=== PATIENT | male | born 1980 | race Caucasian/White ===

== ENCOUNTER 2019-09-19 07:00 | Outpatient (CLI) | payer BC, MEDICARE ==
[2019-09-19 17:03] LABS: CALCIUM 8.9 mg/dL (8.5-10.3); CREATININE 0.9 mg/dL (0.6-1.2)
== END 2019-09-19 23:59 | disposition home or self-care (01) ==
LOC: LAB.WCP 07:00
PROVIDERS: ATTEND Nurse Practitioner Family
DX: R03.0 Elevated blood-pressure reading, without diagnosis of hypertension (principal)
CPT/HCPCS: 36415; 80048

== ENCOUNTER 2019-10-21 14:39 | Outpatient (CLI) | payer BC ==
--- NOTE | 2019-10-23 04:44 | Ultrasound Report ---
Reason: INGUINAL HERNIA Procedure Date: 10/21/2019 Accession Number: [id number] / [id number] Procedure: US - Pelvic Limited or F/U CPT Code: Final Report FULL RESULT: EXAM: Limited pelvic ultrasound EXAM DATE: 10/21/2019 04:39 PM. CLINICAL HISTORY: INGUINAL HERNIA. COMPARISON: ABD/PEL 12/28/2008 10:32 AM. TECHNIQUE: Real-time scanning was performed of the inguinal regions with static images and cine obtained. FINDINGS: Right: In the right groin adjacent to the femoral vessels is a cystic lesion measuring 4.3 x 1.4 x 1.8 cm extending through the femoral canal. It increases in size on Valsalva maneuvers. Bowel loops are also seen extending through the femoral canal with Valsalva maneuvers. These bowel loops are reducible. No inguinal hernia is seen on Valsalva maneuvers. Subcentimeter normal-appearing right inguinal lymph nodes are incidentally seen. Left: No left inguinal or femoral hernias are seen. IMPRESSION: Fluid and bowel-containing reducible right femoral hernia. RADIA
== END 2019-10-21 14:40 | disposition home or self-care (01) ==
LOC: DI 14:39
PROVIDERS: ATTEND Nurse Practitioner Family
DX: K40.90 Unilateral inguinal hernia, without obstruction or gangrene, not specified as recurrent (principal); K41.90 Unilateral femoral hernia, without obstruction or gangrene, not specified as recurrent
CPT/HCPCS: 76857

== ENCOUNTER 2019-11-27 08:50 | Day surgery (SDC) | payer OTHER, BC ==
[~2019-11-27 08:50] MED LIST: CEFAZOLIN SODIUM IN 0.9 % NACL 2 GM/100 ML BAG IV ONE
[2019-11-27] MEDS ORDERED: PROPOFOL 200 MG/20 ML VIAL IVP ONE (08:51)
[2019-11-27] MEDS ORDERED: KETOROLAC 30 MG/ML VIAL IVP ONE (08:51)
[2019-11-27] MEDS ORDERED: GLYCOPYRROLATE 1 MG/5 ML VIAL IVP ONE (08:51)
[2019-11-27] MEDS ORDERED: dexAMETHasone 4 MG TABLET PO ONE (08:51)
[2019-11-27] MEDS ORDERED: ACETAMINOPHEN 1,000 MG/100 ML 100 ML IV ONE (08:51)
[2019-11-27] MEDS ORDERED: fentaNYL 100 MCG/2 ML VIAL IVP ONE (08:51)
[2019-11-27] MEDS ORDERED: ONDANSETRON 4 MG/2 ML VIAL IVP ONE (08:51)
[2019-11-27] MEDS ORDERED: LIDOCAINE-MPF 2% 5 ML VIAL IM ONE (08:51)
[2019-11-27] MEDS ORDERED: SEVOFLURANE 250 ML LIQUID INH ONE (08:51)
[2019-11-27] MEDS ORDERED: MIDAZOLAM 2 MG/2 ML VIAL IVP ONE (08:51)
[2019-11-27] MEDS ORDERED: LACTATED RINGERS 1,000 ML IV ONE (09:00)
--- NOTE | 2019-11-27 10:14 | ANESTHESIA ---
Pre-Anesthesia VS, & Labs - Diagnosis Bilateral inguinal hernias - Procedure bilateral inguinal hernia repair Vital Signs: Temp Pulse Resp BP Pulse Ox 36.1 C L 58 L 16 148/98 H 100 11/27/19 09:00 11/27/19 09:00 11/27/19 09:00 11/27/19 09:00 11/27/19 09:00 Height 5 ft 8 in Weight (kg) 98.9 kg - NPO >8 hours Home Medications and Allergies Home Medications: Ambulatory Orders Lisinopril [Zestril] 5 mg PO DAILY 11/02/19 Multivitamin [Multiple Vitamins] 1 each PO DAILY 11/02/19 Lisinopril [Zestril] 5 mg PO DAILY 11/02/19 Multivitamin [Multiple Vitamins] 1 each PO DAILY 11/02/19 Allergies/Adverse Reactions: Allergies Allergy/AdvReac Type Severity Reaction Status Date / Time No Known Drug Allergies Allergy Verified 11/02/19 14:55 Anes History & Medical History - Anesthetic History Anesthesia Complications: reports: Post-Operative Nausea/Vomiting - Medical History Cardiovascular: reports: Hypertension Pulmonary: reports: None Gastrointestinal: reports: None Urinary: reports: None Neuro: reports: None Musculoskeletal: reports: None Endocrine/Autoimmune: reports: None Blood Disorders: reports: None Skin: reports: None Smoking Status: Never smoker Psychosocial: reports: Alcohol (once per month) - Surgical History General: Other (hernia repair) Orthopedic: Other (hand surgery) Exam General: Alert, Oriented x3, Cooperative, No acute distress Dental: Other (croweded upper, high arched palate) Mouth Openin Fingerbreadth (limited mouth opening) Neck Mobility: Normal Mallampati classification: III Thyromental Distance: greater than 6 cm Respiratory: Lungs clear, Normal breath sounds, No respiratory distress, No accessory muscle use Cardiovascular: Regular rate, Normal S1, Normal S2, No murmurs Mental/Cognitive Status: Alert/Oriented X3, Normal for patient Plan Anesthesia Type: General Consent for Procedure(s) Verified and Reviewed: Yes Code Status: Attempt Resuscitation ASA classification: 2-Mild systemic disease Is this case an emergency?: No
[2019-11-27] MEDS ORDERED: SCOPOLAMINE PATCH TOP ONE (10:27)
[2019-11-27] MEDS ORDERED: ceFAZolin 1 GM VIAL ONE (11:00)
[2019-11-27] MEDS ORDERED: BUPIVACAINE 0.5% PF 30 ML VIAL ONE (11:01)
[2019-11-27] MEDS ORDERED: LIDOCAINE 1%-EPI 1:100000 20 ML MDV ONE (11:02)
[2019-11-27] MEDS ORDERED: ceFAZolin 1 GM VIAL IR ONE (11:55)
[2019-11-27] MEDS ORDERED: BUPIVACAINE 0.5% PF 30 ML VIAL INFIL ONE ×3 (11:55)
[2019-11-27] MEDS ORDERED: LIDOCAINE 1%-EPI 1:100000 30 ML MDV SUBQ ONE ×3 (11:55)
--- NOTE | 2019-11-27 13:00 | OPERATIVE REPORT ---
Operative Report - General Procedure Date: 11/27/19 Planned Procedure: Bilateral inguinal hernia repair Pre-Op Diagnosis: Bilateral inguinal hernias Procedure Performed: Repair of recurrent inguinal hernia on the right and right femoral hernia Repair of indirect left inguinal hernia Post Op Diagnosis: Recurrent right inguinal hernia, right femoral hernia, left inguinal hernia - Procedure Note Primary Surgeon: Arnoldo Anesthesia Provider: ADAL Cuevas Anesthesia Technique: General LMA Pathology: None IV Fluids (mL): 600 Estimated Blood Loss (mL): 15 Findings: Inferomedial recurrence of the right inguinal hernia Large incarcerated right femoral hernia Large indirect left inguinal hernia Complications: None apparent - Other Other Information/Narrative: After obtaining informed consent, the patient is brought to the operating room and placed in the supine position on the operating table. Following successful induction of general anesthesia, appropriate padding of all bony prominences, and placement of appropriate monitors, the abdomen and bilateral groins and scrotum were prepped and draped in the standard surgical fashion. A timeout was held per scope protocol. All elements of the surgical safety checklist were followed before, during, and after the procedure. We began the procedure by infiltrating a mixture of local anesthetics medial to the anterior superior iliac spine on the right to create an ileal inguinal nerve block. We then selected a site for an incision in the right lower quadrant and this area was anesthetized as well. An incision was created here. It was just across the existing incision that is not even visible when hair is grown on the abdomen but with the patient shaved we were able to see very faint scar. This incision was carried down through the skin and subcutaneous tissue, through Geraldo's fascia to reveal an inguinal hernia. The fascia of theexternal oblique aponeurosis was opened in the direction of its fibers. This revealed a spermatic cord and associated vessels. Existing mesh could be felt medially and laterally. A moderate size recurrence was identified in the inferior lateral position, just lateral to the pubic tubercle. This was addressed with a large Prolene hernia system implant. The hernia contents were gently eased back into the abdominal cavity. The implant was dipped in Ancef containing solution and deployed into the defect per bowling ball assembler's directions. It was straightened and flattened. The anterior leaflet was then nicked medially to allow for the spermatic cord to run easily through it without constriction. The ilioinguinal nerve was never identified with certainty. The mesh was then reapproximated with Vicryl suture and sewn to the pubic tubercle medially with Vicryl suture as well. The lateral portion of the anterior leaflet was then tucked under the external oblique aponeurosis.The aponeurosis was then reapproximated with a running locking Vicryl suture. The repair was checked and found to be solid. An additional mass was felt in the right groin inferior to this 1. Further examination revealed a large incarcerated femoral hernia inferior enough to the existing mesh that the defect was not covered. The edges of this defect were then carefully defined and a large portion of omentum eased back into the abdominal cavity. The defect itself proved to be approximately 2 cm in greatest dimension. I elected to repair this hernia with a ventralux 6 cm patch. This was dipped into Ancef solution and deployed into the defect. It was straight ened and flattened in the preperitoneal space without difficulty. The anterior leaflets were then sewn to the Connective tissue overlying the pubic tubercle laterally and anteriorly to the inguinal ligament. The wound was checked for hemostasis and irrigated with warm saline solution. We were satisfied that the repair was complete, Geraldo's fascia was closed with a running locking Vicryl suture, and a Monocryl stitch was placed in the skin. We turned our attention to the left side.Again, a mixture of local anesthetics was infiltrated medial to the anterior superior iliac spine on the left side to create a field block. An incision was then created in the left groin and carried down through the skin and subcutaneous tissue, beyond Geraldo's fascia, to reveal the external oblique aponeurosis. The aponeurosis was then opened in the direction of its fibers and the leaflets reflected medially and laterally. The spermatic cord was then easily identified and surrounded with a Maximiliano drai n. The hernia sac was identified in the anterior medial position and carefully dissected free from the remainder of the structures of the spermatic cord. It was allowed to retract back into the abdominal cavity. The ilioinguinal nerve was identified as well. This was divided and ligated proximally and distally. The end of the nerve was tucked within the muscle of the anterior abdominal wall. We then elected to repair this defect using a large Prolene hernia system mesh implant. It was deployed into the internal ring per bowling ball assembler's directions and flight straightened and flattened in the preperitoneal space. A martita was created medially for placement of the spermatic cord. The cord was placed gently into the space and then the edges of the mesh reapproximated. The mesh was then sewn to the pubic tubercle medially and laterally was tucked under the external oblique aponeurosis. The wound itself was irrigated with warm saline solution containing Ancef and aspirated free of all fluid and particulate matter. The repair was checked and found to be solid. No additional defects were appreciated. The external oblique aponeurosis was then closed with a running Vicryl suture, Geraldo's fascia was closed with a running Vicryl suture, and Monocryl was placed in the skin. All sponge, needle, and instrument counts were correct at the conclusion of the case. The patient was allowed awaken from anesthesia without difficulty and taken to the postanesthesia care unit in good condition.
[2019-11-27] MEDS ORDERED: IBUPROFEN 600 MG TABLET PO PRN (13:10)
[2019-11-27] MEDS ORDERED: ACETAMINOPHEN 325 MG TABLET PO PRN (13:10)
[2019-11-27] MEDS ORDERED: ONDANSETRON 4 MG/2 ML VIAL IVP PRN (13:10)
[2019-11-27] MEDS ORDERED: oxyCODONE 5 MG TABLET PO PRN (13:10)
[2019-11-27 16:11] VITALS: BP 150/98
== END 2019-11-27 08:51 | disposition home or self-care (01) ==
LOC: SDS 08:50
PROVIDERS: ATTEND Surgery
PROC: 0YU70JZ Supplement Right Femoral Region with Synthetic Substitute, Open Approach (ICD-10-PCS; 2019-11-27)
PROC: 0YUA0JZ Supplement Bilateral Inguinal Region with Synthetic Substitute, Open Approach (ICD-10-PCS; principal; 2019-11-27 10:00)
DX: K40.21 Bilateral inguinal hernia, without obstruction or gangrene, recurrent (principal); K41.30 Unilateral femoral hernia, with obstruction, without gangrene, not specified as recurrent; I10 Essential (primary) hypertension; F70 Mild intellectual disabilities; Z79.899 Other long term (current) drug therapy
CPT/HCPCS: 49505; 49520; 49553; C1713; C1781; J0131; J0690; J3490; J7120; J8540

== ENCOUNTER 2020-01-01 08:00 | Outpatient (CLI) | payer BC ==
[2020-01-01 18:48] LABS: BASOPHILS % (AUTO) 0.3 %; EOSINOPHILS # (AUTO) 0.1 10^3/uL (0.0-0.7); LYMPHOCYTES # (AUTO) 1.2 10^3/uL (1.5-3.5); LYMPHOCYTES % (AUTO) 12.1 %; MEAN CORPUSCULAR HEMOGLOBIN 19.1 pg (27.0-31.0); MEAN CORPUSCULAR HGB CONC 25.8 g/dL (32.0-36.0); MEAN CORPUSCULAR VOLUME 73.9 fL (80.0-94.0); MEAN PLATELET VOLUME 9.5 fL (7.4-11.4); MONOCYTES # (AUTO) 0.9 10^3/uL (0.0-1.0); MONOCYTES % (AUTO) 8.6 %; NEUTROPHILS # (AUTO) 7.8 10^3/uL (1.5-6.6); NEUTROPHILS % (AUTO) 77.4 %; PLT - PLATELET COUNT 303 10^3/uL (130-450); RED BLOOD COUNT 2.41 10^6/uL (4.70-6.10); RED CELL DISTRIBUTION WIDTH 17.8 % (12.0-15.0); WHITE BLOOD COUNT 10.1 x10^3/uL (4.8-10.8)
[2020-01-01 18:49] LABS: ALBUMIN/GLOBULIN RATIO 1.5 (1.0-2.2); BILIRUBIN,TOTAL 0.5 mg/dL (0.2-1.0); CALCIUM 8.7 mg/dL (8.5-10.3); TOTAL PROTEIN 6.7 g/dL (6.7-8.2)
[2020-01-01 20:12] LABS: HGB - HEMOGLOBIN 4.6 g/dL (14.0-18.0)
[2020-01-01 20:19] LABS: PLATELET MORPHOLOGY NORMAL APPEARANCE (NORMAL)
[2020-01-01 20:20] LABS: PLATELET ESTIMATE, MANUAL NORMAL (130-450,000) (NORMAL)
== END 2020-01-01 23:59 | disposition home or self-care (01) ==
LOC: LAB.WCP 08:00
PROVIDERS: ATTEND Nurse Practitioner Family
DX: R06.02 Shortness of breath (principal)
CPT/HCPCS: 36415; 80053; 85025; 87275; 87276

== ENCOUNTER 2020-01-01 20:48 | Observation (INO) | payer BC ==
[2020-01-01 21:19] LABS: BASOPHILS % (AUTO) 0.3 %; EOSINOPHILS # (AUTO) 0.2 10^3/uL (0.0-0.7); EOSINOPHILS % (AUTO) 1.4 %; LYMPHOCYTES % (AUTO) 16.2 %; MEAN CORPUSCULAR HEMOGLOBIN 19.4 pg (27.0-31.0); MEAN CORPUSCULAR HGB CONC 26.7 g/dL (32.0-36.0); MEAN CORPUSCULAR VOLUME 72.5 fL (80.0-94.0); MEAN PLATELET VOLUME 9.4 fL (7.4-11.4); MONOCYTES # (AUTO) 1.1 10^3/uL (0.0-1.0); MONOCYTES % (AUTO) 9.2 %; NEUTROPHILS % (AUTO) 72.3 %; PLT - PLATELET COUNT 327 10^3/uL (130-450); RED BLOOD COUNT 2.58 10^6/uL (4.70-6.10); RED CELL DISTRIBUTION WIDTH 17.7 % (12.0-15.0); WHITE BLOOD COUNT 12.5 x10^3/uL (4.8-10.8)
[2020-01-01 21:27] LABS: INR 1.2 (0.8-1.2); PT - PROTHROMBIN TIME 13.2 secs (9.9-12.6)
--- NOTE | 2020-01-01 21:29 | ED Physician Documentation ---
History of Present Illness - Stated complaint Stated Complaint: LOW BLOOD COUNT - PCP REFERRAL - Chief complaint Chief Complaint: General - History obtained from History obtained from: Patient - History of Present Illness Timing: Unknown Pain level now: 0 Improved by: rest Worsened by: exertion Associated symptoms: fatigue, dyspnea on exertion - Additonal information Additional information: patient had outpatient blood tests performed today and was called this evening and advised to go to ED for anemia with Hgb 4.6. Patient says he has never had anemia before. He had bilateral inguinal hernia surgery in late November. He says he recalls noticing a dark stool shortly after the surgery, but has otherwise not been paying attention to the color of his stool. He has been taking 600mg ibuprofen TID for most days of the past few weeks since the surgery. Had nausea and vomiting a few days ago, but this has resolved. Review of Systems Constitutional: reports: Fatigue. denies: Fever, Chills, Myalgias, Sweats Eyes: reports: Reviewed and negative Ears: reports: Reviewed and negative Nose: reports: Reviewed and negative Throat: reports: Reviewed and negative Cardiac: reports: Reviewed and negative Respiratory: reports: Dyspnea (with exertion). denies: Cough GI: denies: Abdominal Pain, Abdominal Swelling, Constipation, Diarrhea, Hematemesis : denies: Dysuria, Frequency Skin: denies: Rash Musculoskeletal: reports: Reviewed and negative Neurologic: reports: Generalized weakness. denies: Focal weakness, Numbness PD PAST MEDICAL HISTORY - Past Medical History Past Medical History: Yes Cardiovascular: Hypertension Respiratory: None Neuro: None Endocrine/Autoimmune: None GI: None : None HEENT: Chronic vision loss Psych: Anxiety, ADD/ADHD, Other Musculoskeletal: None Derm: None - Past Surgical History General: Other Ortho: Other - Present Medications Home Medications: Ambulatory Orders Medication Instructions Recorded Confirmed Lisinopril [Zestril] 5 mg PO DAILY 11/02/19 11/02/19 Multivitamin [Multiple Vitamins] 1 each PO DAILY 11/02/19 11/27/19 Ondansetron Odt [Zofran] 4 mg TL Q6H PRN #10 tablet 11/27/19 oxyCODONE [Roxicodone] 5 mg PO Q4-6H PRN #30 tablet 11/27/19 - Allergies Allergies/Adverse Reactions: Allergies Allergy/AdvReac Type Severity Reaction Status Date / Time No Known Drug Allergies Allergy Verified 11/02/19 14:55 - Social History Does the pt smoke?: No Smoking Status: Never smoker Does the pt drink ETOH?: No Does the pt have substance abuse?: No - Immunizations Immunizations are current?: No PD ED PE NORMAL - Vitals Vital signs reviewed: Yes - General General: Alert and oriented X 3, No acute distress, Well developed/nourished - HEENT HEENT: Moist mucous membranes - Neck Neck: Supple, no meningeal sign - Cardiac Cardiac: RRR, No murmur - Respiratory Respiratory: No respiratory distress, Clear bilaterally - Abdomen Abdomen: Normal bowel sounds, Soft, Non tender, Non distended, No organomegaly - Back Back: No CVA TTP - Derm Derm: Warm and dry, No rash - Neuro Neuro: Alert and oriented X 3 PD ED PE EXPANDED - Abdomen Abdomen: Surgical scars (low abdominal surgical scars are c/d/i without tenderness or erythema) - Rectal Rectal: Hemorrhoid, Normal Tone, Other (unknown guaiac result, as all of the developer has been removed from ED (card thus sent to lab, results pending)) - Derm Derm: Pale Results - Vitals Vitals: Vital Signs - 24 hr 01/01/20 01/01/20 01/01/20 20:56 21:31 22:01 Temperature 36.7 C Heart Rate 108 H 93 Respiratory 14 21 Rate Blood Pressure 146/71 H 155/66 H 145/69 H O2 Saturation 100 98 01/01/20 22:57 Temperature 36.6 C Heart Rate 93 Respiratory 18 Rate Blood Pressure 151/75 H O2 Saturation Oxygen O2 Source Room air - Labs Labs: Microbiology 01/01/20 21:55 Occult Blood - Final Stool Laboratory Tests 01/01/20 01/01/20 01/01/20 14:32 21:09 21:09 WBC 12.5 H RBC 2.58 L Hgb 5.0 L* Hct 18.7 L* MCV 72.5 L MCH 19.4 L MCHC 26.7 L RDW 17.7 H Plt Count 327 MPV 9.4 Neut # (Auto) 9.0 H Lymph # (Auto) 2.0 Valencia # (Auto) 1.1 H Eos # (Auto) 0.2 Baso # (Auto) 0.0 Absolute Nucleated RBC 0.14 Nucleated RBC % 1.1 Manual Slide Review Indicated WBC Morphology NORMAL APPEARANCE Platelet Estimate NORMAL (130-450,000) Platelet Morphology NORMAL APPEARANCE RBC Morph Micro Appear 1+ POLYCHROMASIA PT 13.2 H INR 1.2 APTT 28.3 Sodium Potassium Chloride Carbon Dioxide Anion Gap BUN Creatinine Estimated GFR (MDRD) Glucose Calcium Iron TIBC % Saturation Transferrin Total Bilirubin AST ALT Alkaline Phosphatase Total Protein Albumin Globulin Albumin/Globulin Ratio Lipase Blood Type Blood Type Recheck O POSITIVE Antibody Screen Crossmatch IS Only 01/01/20 01/01/20 01/01/20 21:09 21:09 21:09 WBC RBC Hgb Hct MCV MCH MCHC RDW Plt Count MPV Neut # (Auto) Lymph # (Auto) Valencia # (Auto) Eos # (Auto) Baso # (Auto) Absolute Nucleated RBC Nucleated RBC % Manual Slide Review WBC Morphology Platelet Estimate Platelet Morphology RBC Morph Micro Appear PT INR APTT Sodium 135 Potassium 4.0 Chloride 100 L Carbon Dioxide 23 Anion Gap 12.0 BUN 14 Creatinine 0.9 Estimated GFR (MDRD) 94 Glucose 140 H Calcium 9.1 Iron 11 L TIBC 552 H % Saturation 2 L Transferrin 394 H Total Bilirubin 0.6 AST 16 ALT 17 Alkaline Phosphatase 77 Total Protein 7.2 Albumin 4.2 Globulin 3.0 Albumin/Globulin Ratio 1.4 Lipase 28 Blood Type O POSITIVE Blood Type Recheck Antibody Screen NEGATIVE Crossmatch IS Only See Detail PD MEDICAL DECISION MAKING - ED course Complexity details: reviewed results, re-evaluated patient, considered differential, d/w patient, d/w family Departure - Departure Disposition: 66 [facility] DC/Xfer Clinical Impression: Anemia Qualifiers: Anemia type: unspecified type Qualified Code(s): D64.9 - Anemia, unspecified Condition: Stable Discharge Date/Time: 01/02/20 00:05
[2020-01-01 21:32] LABS: ALBUMIN 4.2 g/dL (3.2-5.5); ALBUMIN/GLOBULIN RATIO 1.4 (1.0-2.2); BILIRUBIN,TOTAL 0.6 mg/dL (0.2-1.0); CALCIUM 9.1 mg/dL (8.5-10.3); CREATININE 0.9 mg/dL (0.6-1.2); TOTAL PROTEIN 7.2 g/dL (6.7-8.2)
[2020-01-01 21:34] LABS: PARTIAL THROMBOPLASTIN TIME 28.3 secs (24.9-33.3)
[2020-01-01 21:42] LABS: PLATELET ESTIMATE, MANUAL NORMAL (130-450,000) (NORMAL); PLATELET MORPHOLOGY NORMAL APPEARANCE (NORMAL)
[2020-01-01] MEDS ORDERED: PANTOPRAZOLE 40 MG VIAL IVP STA (21:59)
[2020-01-01 22:28] LABS: % IRON SATURATION 2 % (20-50); IRON 11 ug/dL (45-182); TOTAL IRON BINDING CAPACITY 552 ug/dL (250-450); TRANSFERRIN 394 mg/dL (180-329)
[2020-01-01] MEDS ORDERED: SODIUM CHLORIDE FLUSH 0.9% 10 ML SYRINGE IVP PRN (23:08)
--- NOTE | 2020-01-01 23:22 | HISTORY & PHYSICAL EXAMINATION ---
Chief Complaint - Chief Complaint Chief Complaint: fatigue, dyspnea History of Present Illness - Admitted From Admitted From:: [facility] - History Obtained From Records Reviewed: yes History obtained from: patient and sister - History of Present Illness HPI Comment/Other: Patient is a 39 y/o male with Hx of alcohol syndrome and some developme ntal delay who presented to the ED after labs done at his PCP office visit today showed a hemoglobin of 4.8. Repeat CBC in the ED showed a hemoglobin of 5.0. He saw his PCP today because he has been increasingly fatigue and gets easily dyspneic with activities that he normally does in the past. He has also been cold. His symptoms have been going on for the past 2 weeks. He had an inguinal hernia surgery on 11/27/19. After the surgery he had been taking ibuprofen 600mg tid. He stopped taking them 2 weeks ago. He reports tarry black stool a couple days after surgery. However he was guaic negative today. He denied chest pain, abd pain, light-headedness or dizziness. He has been nauseous and vomited occasionally. As a result of his presentation, he is being admitted for further work up and treatment. History - Past Medical History Respiratory: reports: None Neuro: reports: None Endocrine/Autoimmune: reports: None GI: reports: None : reports: None HEENT: reports: Chronic vision loss Psych: reports: Anxiety, ADD/ADHD, Other Musculoskeletal: reports: None Derm: reports: None MRSA Hx?: No Other Past Medical History: Alcohol Syndrome - Past Surgical History General: reports: Other (inguinal hernia) Ortho: reports: Other Other past surgical history: left hand surgery - Family & Social History Family History: Mother: (at age 45), CAD, Cancer (throat cancer), Renal Disease/Failure Living arrangement: At home Living Situation: With family Social History Notes: He denied tobacco use or illicit drug use. Reports little alcohol use. - POLST Patient has POLST: No POLST Status: Full Code Meds/Allgy - Home Medications Home Medications: Ambulatory Orders Medication Instructions Recorded Confirmed Lisinopril [Zestril] 5 mg PO DAILY 11/02/19 11/02/19 Multivitamin [Multiple Vitamins] 1 each PO DAILY 11/02/19 11/27/19 Ondansetron Odt [Zofran] 4 mg TL Q6H PRN #10 tablet 11/27/19 oxyCODONE [Roxicodone] 5 mg PO Q4-6H PRN #30 tablet 11/27/19 - Allergies Allergies/Adverse Reactions: Allergies Allergy/AdvReac Type Severity Reaction Status Date / Time No Known Drug Allergies Allergy Verified 11/02/19 14:55 Review of Systems - Constitutional Constitutional: reports: Fatigue, Weakness. denies: Fever, Chills - Eyes Eyes: denies: Pain, Vision loss - Ears, Nose & Throat Ears, Nose & Throat: denies: Vertigo, Sore throat - Cardiovascular Cariovascular: reports: Exertional dyspnea, Decr. exercise tolerance. denies: Chest pain, Edema, Lightheadedness, Syncope - Respiratory Respiratory: reports: SOB with exertion. denies: Cough, Sputum production, Wheezing - Gastrointestinal Gastrointestinal: reports: Black stools. denies: Abdominal pain, Abdominal distention, Bloody stools, Nausea, Vomiting, Coffee grounds emesis, Reflux/heartburn - Genitourinary Genitourinary: denies: Dysuria, Frequency, Urgency, Hematuria - Musculoskeletal Musculoskeletal: denies: Muscle pain, Back pain - Integumentary Integumentary: denies: Rash, Pruritis, Lesions - Neurological Neurological: reports: General weakness. denies: Focal weakness, Headache - Psychiatric Psychiatric: denies: Depression, Anxiety - Endocrine Endocrine: denies: Polyuria, Polydypsia - Hematologic/Lymphatic Hematologic/Lymphatic: reports: Anemia. denies: Bruising Prior Level of Functionality: Patient is independent of activities of daily living Exam - Vital Signs Vital Signs: Vital Signs x48h Temp Pulse Resp BP Pulse Ox 01/01/20 23:16 90 18 147/67 H 98 01/01/20 22:57 36.6 C 93 18 151/75 H 01/01/20 22:01 93 21 145/69 H 98 01/01/20 21:31 155/66 H 01/01/20 20:56 36.7 C 108 H 14 146/71 H 100 - Physical Exam General Appearance: positive: No acute distress, Alert Eyes Bilateral: positive: PERRL, EOMI ENT: positive: No signs of dehydration Neck: positive: No JVD, Trachea midline Respiratory: positive: Chest non-tender, No respiratory distress, Breath sounds nml. negative: Wheezes, Rales, Rhonchi Cardiovascular: positive: Regular rate & rhythm Abdomen: positive: Non-tender, No organomegaly, Nml bowel sounds, No distention. negative: Guarding, Rebound Rectal: positive: Non-tender, Stool - heme NEG Back: positive: Nml inspection Skin: positive: Warm, Dry Extremities: positive: Non-tender, Full ROM, Nml appearance, No pedal edema Neurologic/Psychiatric: positive: Oriented x3, Mood/affect nml Conclusion/Plan - Problem List (1) Symptomatic anemia Conclusion/Plan: Microcytic. Suspected etiology: NSAID use. Also ?Iron Deficiency. TIBC 552, Saturation 2, Iron 11. Transferrin 394. Patient receiving 2 units of PRBC Currently NPO. IV hydration with normal saline Protonix 40mg IV bid Monitor H&H q8hrs Consult General Surgery in the am for possible ED. Will give 1 dose of ferric gluconate IV. Iron sulfate supplement upon discharge - Lab Results Fish Bones: 01/01/20 21:09 01/01/20 21:09 Core Measures - Anticipated LOS I expect patient to be DC'd or transferred within 96 hours.: Yes - DVT/VTE - Prophylaxis VTE/DVT Device ordered at admit?: Yes VTE/DVT Prophylaxis med ordered at admit?: No
[2020-01-01] MEDS ORDERED: SODIUM CHLORIDE 0.9% 1,000 ML IV SCH (23:45)
[2020-01-02] MEDS: SODIUM CHLORIDE FLUSH 0.9% 10 ML SYRINGE IVP SCH ×3 (06:13→16:59)
[2020-01-02 06:53] LABS: BASOPHILS % (AUTO) 0.4 %; EOSINOPHILS # (AUTO) 0.1 10^3/uL (0.0-0.7); EOSINOPHILS % (AUTO) 1.4 %; LYMPHOCYTES # (AUTO) 1.4 10^3/uL (1.5-3.5); LYMPHOCYTES % (AUTO) 14.5 %; MEAN CORPUSCULAR HGB CONC 29.1 g/dL (32.0-36.0); MEAN CORPUSCULAR VOLUME 75.7 fL (80.0-94.0); MEAN PLATELET VOLUME 9.4 fL (7.4-11.4); MONOCYTES # (AUTO) 0.8 10^3/uL (0.0-1.0); MONOCYTES % (AUTO) 8.2 %; PLT - PLATELET COUNT 233 10^3/uL (130-450); RED BLOOD COUNT 2.68 10^6/uL (4.70-6.10); WHITE BLOOD COUNT 9.3 x10^3/uL (4.8-10.8)
[2020-01-02 07:01] LABS: HGB - HEMOGLOBIN 5.9 g/dL (14.0-18.0)
[2020-01-02 07:13] LABS: CALCIUM 8.6 mg/dL (8.5-10.3)
[2020-01-02] MEDS ORDERED: SODIUM CHLORIDE 0.9% 100ML 100 ML IV ONE (08:10)
[2020-01-02] MEDS ORDERED: FERRIC GLUCONATE 125 MG in SODIUM CHLORIDE 0.9% 100ML 100 ML IV ONE (09:00)
[2020-01-02] MEDS ORDERED: PANTOPRAZOLE 40 MG VIAL IVP SCH ×2 (09:00)
--- NOTE | 2020-01-02 12:23 | PROVIDER PROGRESS NOTE ---
Subjective - Prog Note Date Prog Note Date: 01/02/20 Prog Note Time: 12:21 - Subjective Subjective: He is hungry. That is his main concern. No melanotic stool. No abdominal pain. Has been hemodynamically stable. Current Medications - Current Medications Current Medications: Active Medications Sodium Chloride (Normal Saline 0.9%) 1,000 mls @ 100 mls/hr IV .Q10H [facility] Last Admin: 01/02/20 06:12 Dose: 100 mls/hr Pantoprazole Sodium (Protonix) 40 mg IVP BID [facility] Last Admin: 01/02/20 08:14 Dose: 40 mg Sodium Chloride (Normal Saline Flush 0.9%) 10 ml IVP PRN PRN PRN Reason: NEEDED PER PROVIDER ORDERS Sodium Chloride (Normal Saline Flush 0.9%) 10 ml IVP 0100,0900,1700 [facility] Last Admin: 01/02/20 08:14 Dose: 10 ml Lisinopril [Zestril] 5 mg PO DAILY 11/02/19 Multivitamin [Multiple Vitamins] 1 each PO DAILY 11/02/19 Objective - Vital Signs/Intake & Output Reviewed Vital Signs: Yes Vital Signs: Vital Signs x48h Temp Pulse Pulse Resp BP BP Pulse Ox 01/02/20 11:59 36.4 C L 71 16 144/65 H 01/02/20 11:45 36.4 C L 72 16 142/66 H 01/02/20 11:28 36.5 C 73 18 143/72 H 01/02/20 08:00 36.9 C 74 18 138/61 H 98 01/02/20 05:55 36.6 C 75 18 136/64 H Intake & Output: Intake & Output 12/30/19 12/31/19 01/01/20 01/02/20 23:59 23:59 23:59 23:59 Intake Total 773 Output Total 700 Balance 73 - Objective General Appearance: positive: No acute distress, Alert Eyes Bilateral: positive: PERRL ENT: positive: Pharynx nml Neck: positive: No JVD. negative: Stiff neck Respiratory: positive: Chest non-tender. negative: Wheezes, Rales, Rhonchi Cardiovascular: positive: Regular rate & rhythm. negative: Gallop/S4, Friction rub Abdomen: positive: Non-tender, No organomegaly, Nml bowel sounds, No distention Skin: positive: Warm, Dry, Pallor Extremities: positive: Non-tender, No pedal edema Neurologic/Psychiatric: positive: Oriented x3, CN's nml (2-12), Motor nml, Other (Cognitive deficit/delay, chronic) - Lab Results Fish Bones: 01/02/20 06:43 01/02/20 06:43 Other Labs: Lab Results x24hrs 01/02/20 01/02/20 01/01/20 Range/Units 06:43 06:43 21:09 WBC 9.3 (4.8-10.8) x10^3/uL RBC 2.68 L (4.70-6.10) 10^6/uL Hgb 5.9 L* (14.0-18.0) g/dL Hct 20.3 L (42.0-52.0) % MCV 75.7 L (80.0-94.0) fL MCH 22.0 L (27.0-31.0) pg MCHC 29.1 L (32.0-36.0) g/dL RDW 19.0 H (12.0-15.0) % Plt Count 233 (130-450) 10^3/uL MPV 9.4 (7.4-11.4) fL Neut # (Auto) 7.0 H (1.5-6.6) 10^3/uL Lymph # (Auto) 1.4 L (1.5-3.5) 10^3/uL Door # (Auto) 0.8 (0.0-1.0) 10^3/uL Eos # (Auto) 0.1 (0.0-0.7) 10^3/uL Baso # (Auto) 0.0 (0.0-0.1) 10^3/uL Absolute Nucleated RBC 0.07 x10^3/uL Nucleated RBC % 0.8 /100WBC Manual Slide Review WBC Morphology (NORMAL) Platelet Estimate (NORMAL) Platelet Morphology (NORMAL) RBC Morph Micro Appear (NORMAL) PT (9.9-12.6) secs INR (0.8-1.2) APTT (24.9-33.3) secs Sodium 137 (135-145) mmol/L Potassium 4.6 (3.5-5.0) mmol/L Chloride 105 (101-111) mmol/L Carbon Dioxide 23 (21-32) mmol/L Anion Gap 9.0 (6-13) BUN 14 (6-20) mg/dL Creatinine 1.0 (0.6-1.2) mg/dL Estimated GFR (MDRD) 84 L (>89) Glucose 106 H (70-100) mg/dL Calcium 8.6 (8.5-10.3) mg/dL Iron 11 L (45-182) ug/dL TIBC 552 H (250-450) ug/dL % Saturation 2 L (20-50) % Transferrin 394 H (180-329) mg/dL Total Bilirubin (0.2-1.0) mg/dL AST (10-42) IU/L ALT (10-60) IU/L Alkaline Phosphatase (42-121) IU/L Total Protein (6.7-8.2) g/dL Albumin (3.2-5.5) g/dL Globulin (2.1-4.2) g/dL Albumin/Globulin Ratio (1.0-2.2) Lipase (22-51) U/L Blood Type Blood Type Recheck Antibody Screen Crossmatch IS Only 01/01/20 01/01/20 01/01/20 Range/Units 21:09 21:09 21:09 WBC (4.8-10.8) x10^3/uL RBC (4.70-6.10) 10^6/uL Hgb (14.0-18.0) g/dL Hct (42.0-52.0) % MCV (80.0-94.0) fL MCH (27.0-31.0) pg MCHC (32.0-36.0) g/dL RDW (12.0-15.0) % Plt Count (130-450) 10^3/uL MPV (7.4-11.4) fL Neut # (Auto) (1.5-6.6) 10^3/uL Lymph # (Auto) (1.5-3.5) 10^3/uL Door # (Auto) (0.0-1.0) 10^3/uL Eos # (Auto) (0.0-0.7) 10^3/uL Baso # (Auto) (0.0-0.1) 10^3/uL Absolute Nucleated RBC x10^3/uL Nucleated RBC % /100WBC Manual Slide Review WBC Morphology (NORMAL) Platelet Estimate (NORMAL) Platelet Morphology (NORMAL) RBC Morph Micro Appear (NORMAL) PT 13.2 H (9.9-12.6) secs INR 1.2 (0.8-1.2) APTT 28.3 (24.9-33.3) secs Sodium 135 (135-145) mmol/L Potassium 4.0 (3.5-5.0) mmol/L Chloride 100 L (101-111) mmol/L Carbon Dioxide 23 (21-32) mmol/L Anion Gap 12.0 (6-13) BUN 14 (6-20) mg/dL Creatinine 0.9 (0.6-1.2) mg/dL Estimated GFR (MDRD) 94 (>89) Glucose 140 H (70-100) mg/dL Calcium 9.1 (8.5-10.3) mg/dL Iron (45-182) ug/dL TIBC (250-450) ug/dL % Saturation (20-50) % Transferrin (180-329) mg/dL Total Bilirubin 0.6 (0.2-1.0) mg/dL AST 16 (10-42) IU/L ALT 17 (10-60) IU/L Alkaline Phosphatase 77 (42-121) IU/L Total Protein 7.2 (6.7-8.2) g/dL Albumin 4.2 (3.2-5.5) g/dL Globulin 3.0 (2.1-4.2) g/dL Albumin/Globulin Ratio 1.4 (1.0-2.2) Lipase 28 (22-51) U/L Blood Type O POSITIVE Blood Type Recheck Antibody Screen NEGATIVE Crossmatch IS Only See Detail 01/01/20 01/01/20 Range/Units 21:09 14:32 WBC 12.5 H (4.8-10.8) x10^3/uL RBC 2.58 L (4.70-6.10) 10^6/uL Hgb 5.0 L* (14.0-18.0) g/dL Hct 18.7 L* (42.0-52.0) % MCV 72.5 L (80.0-94.0) fL MCH 19.4 L (27.0-31.0) pg MCHC 26.7 L (32.0-36.0) g/dL RDW 17.7 H (12.0-15.0) % Plt Count 327 (130-450) 10^3/uL MPV 9.4 (7.4-11.4) fL Neut # (Auto) 9.0 H (1.5-6.6) 10^3/uL Lymph # (Auto) 2.0 (1.5-3.5) 10^3/uL Door # (Auto) 1.1 H (0.0-1.0) 10^3/uL Eos # (Auto) 0.2 (0.0-0.7) 10^3/uL Baso # (Auto) 0.0 (0.0-0.1) 10^3/uL Absolute Nucleated RBC 0.14 x10^3/uL Nucleated RBC % 1.1 /100WBC Manual Slide Review Indicated WBC Morphology NORMAL APPEARANCE (NORMAL) Platelet Estimate NORMAL (130-450,000) (NORMAL) Platelet Morphology NORMAL APPEARANCE (NORMAL) RBC Morph Micro Appear 1+ POLYCHROMASIA (NORMAL) PT (9.9-12.6) secs INR (0.8-1.2) APTT (24.9-33.3) secs Sodium (135-145) mmol/L Potassium (3.5-5.0) mmol/L Chloride (101-111) mmol/L Carbon Dioxide (21-32) mmol/L Anion Gap (6-13) BUN (6-20) mg/dL Creatinine (0.6-1.2) mg/dL Estimated GFR (MDRD) (>89) Glucose (70-100) mg/dL Calcium (8.5-10.3) mg/dL Iron (45-182) ug/dL TIBC (250-450) ug/dL % Saturation (20-50) % Transferrin (180-329) mg/dL Total Bilirubin (0.2-1.0) mg/dL AST (10-42) IU/L ALT (10-60) IU/L Alkaline Phosphatase (42-121) IU/L Total Protein (6.7-8.2) g/dL Albumin (3.2-5.5) g/dL Globulin (2.1-4.2) g/dL Albumin/Globulin Ratio (1.0-2.2) Lipase (22-51) U/L Blood Type Blood Type Recheck O POSITIVE Antibody Screen Crossmatch IS Only ABX Reporting Has patient been on IV antibiotics over the past 48 hours?: No Assessment/Plan - Problem List (1) Symptomatic anemia Impression: We suspect iron deficiency 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 At this time he is hemodynamically stable. I spoke to general surgery, Dr. Mukherjee, and he does not necessarily need an EGD during this stay. 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 Associated with anxiety when overwhelmed with too much information. As such most information is being given to him in a very simplistic level. Any detailed conversation is being help with his sister, Jeremiah Valenzuela. I have already called her to let her know what her plan is. Transfuse today, discharged today if possible. I have explained that he cannot take any nonsteroidals such as ibuprofen, Aleve, Naprosyn, Motrin, aspirin. He will need to take Protonix daily for minimum of a month. He is already scheduled to see Dr. Mukherjee January 09 for his inguinal hernia repair follow-up. I have discussed the case with Dr. Mukherjee. She will see him for possible EGD on January 09 and schedule it at that time. I have also called Dr. Mukherjee's office and updated them on their scheduling as well.
[2020-01-02 17:35] LABS: BASOPHILS # (AUTO) 0.1 10^3/uL (0.0-0.1); BASOPHILS % (AUTO) 0.5 %; EOSINOPHILS # (AUTO) 0.2 10^3/uL (0.0-0.7); EOSINOPHILS % (AUTO) 1.8 %; HGB - HEMOGLOBIN 8.6 g/dL (14.0-18.0); LYMPHOCYTES # (AUTO) 1.7 10^3/uL (1.5-3.5); LYMPHOCYTES % (AUTO) 18.5 %; MEAN CORPUSCULAR HEMOGLOBIN 23.6 pg (27.0-31.0); MEAN CORPUSCULAR HGB CONC 30.1 g/dL (32.0-36.0); MEAN CORPUSCULAR VOLUME 78.4 fL (80.0-94.0); MEAN PLATELET VOLUME 9.7 fL (7.4-11.4); MONOCYTES # (AUTO) 0.6 10^3/uL (0.0-1.0); MONOCYTES % (AUTO) 6.7 %; NEUTROPHILS # (AUTO) 6.7 10^3/uL (1.5-6.6); NEUTROPHILS % (AUTO) 71.9 %; PLT - PLATELET COUNT 244 10^3/uL (130-450); RED BLOOD COUNT 3.65 10^6/uL (4.70-6.10); RED CELL DISTRIBUTION WIDTH 18.8 % (12.0-15.0); WHITE BLOOD COUNT 9.3 x10^3/uL (4.8-10.8)
--- NOTE | 2020-01-02 17:44 | PHARMACY PROGRESS NOTE ---
- Best Possible Medication History Admit Date and Time: 01/01/20 7862 Processed by: Pharmacy Medication History completed: Yes Patient Interview: Completed Secondary Source(s): Insurance records As the person ultimately responsible for medication therapy, providers are able to order a medication from an existing home medication list in [facility] via the "Reconcile Routine" prior to Confirmation of that medication by network support analyst. Such practice is discouraged except when the physician, in their clinical judgment, deems that a medical need exists for a medication without regard to previous use.
--- NOTE | 2020-01-02 18:44 | Discharge Plan ---
Discharge Plan Problem Reviewed?: Yes Disposition: Home, Self Care Condition: Stable Prescriptions: Ferrous Gluconate [Fergon] 270 mg PO DAILY 30 Days #30 tablet Pantoprazole [Protonix] 40 mg PO DAILY 30 Days #30 tablet Diet: Regular Activity Restrictions: No Restrictions Shower Restrictions: No Driving Restrictions: No Weight Bearing: Full Weight Instruction Topics: Supplements Iron Health Concerns: 1. Symptomatic Anemia Don not take any NSAIDS or steroids Take protonix 40mg tab. 1 tab daily Follow up with Dr Arana as planned on 01/10/20 2. Hypertension Continue taking lisinopril 5mg tab. 1 tab daily Plan of Treatment: 1. Symptomatic Anemia Don not take any NSAIDS or steroids Take protonix 40mg tab. 1 tab daily Follow up with Dr Arana as planned on 01/10/20 2. Hypertension Continue taking lisinopril 5mg tab. 1 tab daily Care Goals: 1. Symptomatic Anemia Don not take any NSAIDS or steroids Take protonix 40mg tab. 1 tab daily Follow up with Dr Arana as planned on 01/10/20 2. Hypertension Continue taking lisinopril 5mg tab. 1 tab daily Assessment: Plan discussed with patient and sister who are in agreement No Smoking: If you smoke, Please STOP! Call for help. Follow-up with: JOSE MTZ, MSN, [employer] MACH[employer] OFFBEARER [Primary Care Provider] -
--- NOTE | 2020-01-02 18:45 | DISCHARGE SUMMARY ---
"Discharge Summary Admit Date: 01/01/20 Discharge Date: 01/02/20 Discharging Provider: Shadi Meza Primary Care Provider: Bismark Pinon Condition at Discharge: Stable Discharge Disposition: 01 Home, Self Care - DIAGNOSES Admission Diagnoses: 1. Symptomatic Anemia 2. Hypertension Discharge Diagnoses with Status of Each Condition: 1. Symptomatic Anemia. s/p 4 units PRBC transfusion. Hemoglobin improved from 4.8 to 8.6 2. Hypertension. Chronic. - HPI History of Present Illness: Patient is a 39 y/o male with Hx of alcohol syndrome and some developmental delay who presented to the ED after labs done at his PCP office visit today showed a hemoglobin of 4.8. Repeat CBC in the ED showed a hemoglobin of 5.0. He saw his PCP today because he has been increasingly fatigue and gets easily dyspneic with activities that he normally does in the past. He has also been cold. His symptoms have been going on for the past 2 weeks. He had an inguinal hernia surgery on 11/27/19. After the surgery he had been taking ibuprofen 600mg tid. He stopped taking them 2 weeks ago. He reports tarry black stool a couple days after surgery. However he was guaic negative today. He denied chest pain, abd pain, light-headedness or dizziness. He has been nauseous and vomited occasionally. As a result of his presentation, he is being admitted for further work up and treatment. - CONSULTS | PROCEDURES Consultations: General Surgery: Dr Mclaughlin - HOSPITAL COURSE Hospital Course: Patient was transfused 4 units of PRBC. His hemoglobin improved from 4.8 to 8.6 He was on protonix 40mg IV bid while in the hospital. He was discharged on ferrous gluconate 270mg po daily and protonix 40mg po daily. He was advised to stop using NSAIDS or steroids in the presence of his sister. His vitals remained stable through out his stay in the hospital. He was discharged home with plan to follow up with Dr China Mclaughlin on 01/10/20 as planned - ALLERGIES Allergies/Adverse Reactions: Allergies Allergy/AdvReac Type Severity Reaction Status Date / Time No Known Drug Allergies Allergy Verified 11/02/19 14:55 - MEDICATIONS Home Medications: Ambulatory Orders Medication Instructions Recorded Confirmed Lisinopril [Zestril] 5 mg PO DAILY 11/02/19 01/02/20 Multivitamin [Multiple Vitamins] 1 tab PO DAILY 11/02/19 01/02/20 Ferrous Gluconate [Fergon] 270 mg PO DAILY 30 Days #30 tablet 01/02/20 Pantoprazole [Protonix] 40 mg PO DAILY 30 Days #30 tablet 01/02/20 - PHYSICAL EXAM AT DISCHARGE General Appearance: positive: No acute distress, Alert Eyes Bilateral: positive: PERRL, EOMI ENT: positive: No signs of dehydration Neck: positive: No JVD, Trachea midline Respiratory: positive: Chest non-tender, No respiratory distress, Breath sounds nml. negative: Wheezes, Rales, Rhonchi Cardiovascular: positive: Regular rate & rhythm Abdomen: positive: Non-tender, No organomegaly, Nml bowel sounds, No distention. negative: Guarding, Rebound Back: positive: Nml inspection Skin: positive: Color nml, No rash, Warm, Dry Extremities: positive: Non-tender, Full ROM, Nml appearance, No pedal edema Neurologic/Psychiatric: positive: Oriented x3, Mood/affect nml - LABS Result Diagrams: 01/02/20 17:27 01/02/20 06:43 - FOLLOW UP Follow Up: With Dr China Mclaughlin on 01/10/20 - TIME SPENT Time Spent in Discharge (Minutes): 31"
[2020-01-02 19:35] VITALS: BP 155/81
== END 2020-01-02 20:00 | disposition home or self-care (01) ==
LOC: ED 20:48 → MS2 23:08
PROVIDERS: ADMIT Internal Medicine; ATTEND Specialist
DX: D64.9 Anemia, unspecified (principal); R06.02 Shortness of breath; R62.50 Unspecified lack of expected normal physiological development in childhood; R53.83 Other fatigue; R53.1 Weakness; I10 Essential (primary) hypertension; I48.91 Unspecified atrial fibrillation; K21.9 Gastro-esophageal reflux disease without esophagitis; F41.9 Anxiety disorder, unspecified; F90.9 Attention-deficit hyperactivity disorder, unspecified type; Z79.899 Other long term (current) drug therapy; Z80.8 Family history of malignant neoplasm of other organs or systems; Z82.49 Family history of ischemic heart disease and other diseases of the circulatory system; Z84.1 Family history of disorders of kidney and ureter
CPT/HCPCS: 36415; 36430; 71046; 80048; 80053; 82272; 83540; 83690; 84466; 85025; 85610; 85730; 86850; 86900; 86901; 86920; 87275; 87276; 93005; 96361; 96365; 96372; 96375; 99284; 99285; G0378; J2916; P9016

== ENCOUNTER 2020-01-02 02:49 | Outpatient (CLI) | payer BC ==
--- NOTE | 2020-01-02 03:23 | XRAY Report ---
Reason: SHORTNESS OF BREATH Procedure Date: 01/01/2020 Accession Number: [id number] / [id number] Procedure: WCP - Chest 2 View X-Ray CPT Code: 53768 Final Report FULL RESULT: EXAM: CHEST RADIOGRAPHY EXAM DATE: 01/01/2020 02:49 PM. CLINICAL HISTORY: SHORTNESS OF BREATH. COMPARISON: None. TECHNIQUE: 2 views. FINDINGS: The patient is rotated to the right. The mediastinal contours are within normal limits. The heart is at the upper limits of normal in size. There is no focal consolidation, pleural effusion, or pneumothorax. The thoracic kyphosis is exaggerated. IMPRESSION: No focal consolidation. RADIA
== END 2020-01-02 23:59 | disposition home or self-care (01) ==
LOC: DI.WCP 02:49
PROVIDERS: ATTEND Nurse Practitioner Family
DX: R06.02 Shortness of breath (principal)
CPT/HCPCS: 71046

== ENCOUNTER 2020-01-17 07:41 | Day surgery (SDC) | payer BC ==
[~2020-01-17 07:41] MED LIST changes: -CEFAZOLIN SODIUM IN 0.9 % NACL 2 GM/100 ML BAG IV ONE; +LACTATED RINGERS 1,000 ML IV ONE
[2020-01-17] MEDS ORDERED: LIDOCAINE-MPF 2% 5 ML VIAL IM ONE (07:42)
[2020-01-17] MEDS ORDERED: KETAMINE 500 MG/10 ML VIAL IVP ONE (07:42)
[2020-01-17] MEDS ORDERED: PROPOFOL 1000 MG/100 ML 100 ML IV ONE (07:42)
[2020-01-17] MEDS ORDERED: MIDAZOLAM 2 MG/2 ML VIAL IVP ONE (07:42)
--- NOTE | 2020-01-17 09:00 | ANESTHESIA ---
Pre-Anesthesia VS, & Labs - Diagnosis Upper GI bleed - Procedure EGD Vital Signs: Temp Pulse Resp BP Pulse Ox 36.7 C 58 L 16 157/86 H 100 01/17/20 07:38 01/17/20 07:38 01/17/20 07:38 01/17/20 07:38 01/17/20 07:38 Height 5 ft 8 in Weight (kg) 96.1 kg Body Mass Index 32.1 - NPO >8 hours Home Medications and Allergies Lisinopril [Zestril] 5 mg PO DAILY 11/02/19 Multivitamin [Multiple Vitamins] 1 tab PO DAILY 11/02/19 Allergies/Adverse Reactions: Allergies Allergy/AdvReac Type Severity Reaction Status Date / Time No Known Drug Allergies Allergy Verified 11/02/19 14:55 Anes History & Medical History - Anesthetic History Anesthesia Complications: reports: No previous complications Family history of Anesthesia Complications: Denies Family history of Malignant Hyperthermia: Denies - Medical History Cardiovascular: reports: Hypertension Pulmonary: reports: None Gastrointestinal: reports: None Urinary: reports: None Neuro: reports: None Musculoskeletal: reports: None Endocrine/Autoimmune: reports: None Blood Disorders: reports: None Skin: reports: None Smoking Status: Never smoker Other Past Medical History: Hx FAS, B nystagmus, developmental delay - Surgical History General: Other (inguinal hernia) Orthopedic: Other Exam General: Alert, Oriented x3, Cooperative Dental: WNL Mouth Openin Fingerbreadth Mallampati classification: III Thyromental Distance: 4-6 cm Respiratory: Lungs clear, Normal breath sounds, No respiratory distress Cardiovascular: Regular rate Neurological: Normal speech Mental/Cognitive Status: Alert/Oriented X3 Cognitive Status: Within normal limits Plan Anesthesia Type: MAC Consent for Procedure(s) Verified and Reviewed: Yes Code Status: Attempt Resuscitation ASA classification: 2-Mild systemic disease Is this case an emergency?: No
[2020-01-17] MEDS ORDERED: LIDO GARGLE 30 ML BOTTLE ONE (09:09)
[2020-01-17] MEDS ORDERED: LIDO GARGLE 30 ML BOTTLE PO ONE (09:12)
[2020-01-17 10:32] VITALS: BP 132/72
== END 2020-01-17 07:42 | disposition home or self-care (01) ==
LOC: SDS 07:41
PROVIDERS: ATTEND Surgery
PROC: 0DB78ZX Excision of Stomach, Pylorus, Via Natural or Artificial Opening Endoscopic, Diagnostic (ICD-10-PCS; 2020-01-17)
PROC: 0DB98ZX Excision of Duodenum, Via Natural or Artificial Opening Endoscopic, Diagnostic (ICD-10-PCS; principal; 2020-01-17 08:45)
DX: K31.7 Polyp of stomach and duodenum (principal); K29.70 Gastritis, unspecified, without bleeding; K44.9 Diaphragmatic hernia without obstruction or gangrene; I10 Essential (primary) hypertension; Z80.0 Family history of malignant neoplasm of digestive organs
CPT/HCPCS: 43239; A9270; J7120

== ENCOUNTER → 2020-10-09 | Outpatient (CLI) | payer BC ==
[2020-10-09 17:47] LABS: BASOPHILS % (AUTO) 0.3 %; EOSINOPHILS # (AUTO) 0.3 10^3/uL (0.0-0.7); EOSINOPHILS % (AUTO) 2.8 %; HGB - HEMOGLOBIN 14.9 g/dL (14.0-18.0); LYMPHOCYTES # (AUTO) 2.2 10^3/uL (1.5-3.5); LYMPHOCYTES % (AUTO) 23.2 %; MEAN CORPUSCULAR HEMOGLOBIN 25.6 pg (27.0-31.0); MEAN CORPUSCULAR VOLUME 82.5 fL (80.0-94.0); MEAN PLATELET VOLUME 9.1 fL (7.4-11.4); MONOCYTES # (AUTO) 0.7 10^3/uL (0.0-1.0); MONOCYTES % (AUTO) 7.8 %; NEUTROPHILS # (AUTO) 6.1 10^3/uL (1.5-6.6); NEUTROPHILS % (AUTO) 65.6 %; PLT - PLATELET COUNT 333 10^3/uL (130-450); RED BLOOD COUNT 5.82 10^6/uL (4.70-6.10); RED CELL DISTRIBUTION WIDTH 20.7 % (12.0-15.0); WHITE BLOOD COUNT 9.3 x10^3/uL (4.8-10.8)
[2020-10-09 18:26] LABS: PLATELET ESTIMATE, MANUAL NORMAL (130-450,000) (NORMAL); PLATELET MORPHOLOGY NORMAL APPEARANCE (NORMAL)
== END ==
LOC: LAB.WCP 08:00
PROVIDERS: ATTEND Family Medicine
DX: D64.9 Anemia, unspecified (principal)
CPT/HCPCS: 36415; 85025

== ENCOUNTER 2020-10-28 10:06 | Outpatient (CLI) | payer BC | END 2020-10-28 10:07 | disposition home or self-care (01) | LOC: COV 10:06 | PROVIDERS: ATTEND Family Medicine | DX: Z20.828 Contact with and (suspected) exposure to other viral communicable diseases (principal) ==

== ENCOUNTER 2021-05-01 16:49 | Outpatient (CLI) | payer BC ==
--- NOTE | 2021-05-02 10:01 | XRAY Report ---
PROCEDURE: Elbow 3 View RT INDICATIONS: LATERAL EPICONDYLITIS, RIGHT TECHNIQUE: 3 views of the elbow were acquired. COMPARISON: None FINDINGS: Bones: No fractures or dislocations. No suspicious bony lesions. Soft tissues: No elbow joint effusion. No suspicious soft tissue calcifications. IMPRESSION: No acute fracture. No osseous lesion. If symptoms and/or clinical suspicion for pathology continue, f urther assessment with repeat plain films, or advanced imaging (e.g., CT, MRI, or bone scan) is recom mended for further assessment. Reviewed by: Ariane Durant MD on 05/02/2021 10:00 AM PDT Approved by: Ariane Durant MD on 05/02/2021 10:00 AM PDT Station ID: [id number]
== END 2021-05-01 16:50 | disposition home or self-care (01) ==
LOC: DI.N 16:49
PROVIDERS: ATTEND Family Medicine
DX: M77.11 Lateral epicondylitis, right elbow (principal)

== ENCOUNTER 2021-06-23 07:59 | Outpatient (CLI) | payer BC ==
[2021-06-23 12:11] LABS: BASOPHILS % (AUTO) 0.5 %; EOSINOPHILS # (AUTO) 0.4 10^3/uL (0.0-0.7); EOSINOPHILS % (AUTO) 5.8 %; HCT - HEMATOCRIT 42.5 % (42.0-52.0); HGB - HEMOGLOBIN 12.9 g/dL (14.0-18.0); LYMPHOCYTES # (AUTO) 1.5 10^3/uL (1.5-3.5); LYMPHOCYTES % (AUTO) 24.3 %; MEAN CORPUSCULAR HGB CONC 30.4 g/dL (32.0-36.0); MEAN CORPUSCULAR VOLUME 82.2 fL (80.0-94.0); MEAN PLATELET VOLUME 9.1 fL (7.4-11.4); MONOCYTES # (AUTO) 0.5 10^3/uL (0.0-1.0); MONOCYTES % (AUTO) 8.8 %; NEUTROPHILS # (AUTO) 3.7 10^3/uL (1.5-6.6); NEUTROPHILS % (AUTO) 60.4 %; PLT - PLATELET COUNT 361 10^3/uL (130-450); RED BLOOD COUNT 5.17 10^6/uL (4.70-6.10); RED CELL DISTRIBUTION WIDTH 16.4 % (12.0-15.0); WHITE BLOOD COUNT 6.2 x10^3/uL (4.8-10.8)
[2021-06-23 12:29] LABS: ALBUMIN 4.3 g/dL (3.2-5.5); ALBUMIN/GLOBULIN RATIO 1.9 (1.0-2.2); ALKALINE PHOSPHATASE 53 IU/L (42-121); ALT ALANINE AMINOTRANSFERASE 27 IU/L (10-60); AST ASPARTATE AMINOTRANSFERASE 22 IU/L (10-42); BILIRUBIN,TOTAL 0.6 mg/dL (0.2-1.0); BUN - BLOOD UREA NITROGEN 13 mg/dL (6-20); CALCIUM 9.1 mg/dL (8.5-10.3); CARBON DIOXIDE - CO2 25 mmol/L (21-32); CHLORIDE 109 mmol/L (101-111); CHOL/HDL RATIO 2.5 (<5.0); CHOLESTEROL 159 mg/dL; CREATININE 0.8 mg/dL (0.6-1.2); GFR - MDRD 107 (>89); GLUCOSE 102 mg/dL (70-100); HDL CHOLESTEROL 63 mg/dL; LDL CHOLESTEROL,CALCULATED 88 mg/dL; LDL/HDL RATIO 1.4 (<3.6); POTASSIUM 4.4 mmol/L (3.5-5.0); SODIUM 140 mmol/L (135-145); TOTAL PROTEIN 6.6 g/dL (6.7-8.2); TRIGLYCERIDES 41 mg/dL; VLDL CHOLESTEROL 8 mg/dL
[2021-06-23 12:35] LABS: THYROID STIMULATING HORMONE 1.34 uIU/mL (0.34-5.60)
[2021-06-23 13:24] LABS: ESTIMATED AVERAGE GLUCOSE 128 mg/dL (70-100); HEMOGLOBIN A1c% 6.1 % (4.27-6.07)
== END 2021-06-23 23:59 | disposition home or self-care (01) ==
LOC: LAB.WCP 07:59
PROVIDERS: ATTEND Family Medicine
DX: D64.9 Anemia, unspecified (principal); I10 Essential (primary) hypertension; R73.9 Hyperglycemia, unspecified
CPT/HCPCS: 36415; 80053; 80061; 83036; 83721; 84443; 85025

== ENCOUNTER 2021-07-14 08:00 | Outpatient (CLI) | payer BC ==
[2021-07-14 19:15] LABS: FECAL OCCULT BLOOD (FIT) POSITIVE (NEGATIVE)
== END 2021-07-14 23:59 | disposition home or self-care (01) ==
LOC: LAB.WCP 08:00
PROVIDERS: ATTEND Family Medicine
DX: D64.9 Anemia, unspecified (principal)
CPT/HCPCS: 82274

== ENCOUNTER 2021-12-31 07:39 | Outpatient (CLI) | payer BC ==
[2021-12-31 12:13] LABS: BASOPHILS % (AUTO) 0.3 %; EOSINOPHILS # (AUTO) 0.2 10^3/uL (0.0-0.7); HCT - HEMATOCRIT 45.3 % (42.0-52.0); HGB - HEMOGLOBIN 14.1 g/dL (14.0-18.0); LYMPHOCYTES # (AUTO) 1.3 10^3/uL (1.5-3.5); LYMPHOCYTES % (AUTO) 18.7 %; MEAN CORPUSCULAR HEMOGLOBIN 25.8 pg (27.0-31.0); MEAN CORPUSCULAR HGB CONC 31.1 g/dL (32.0-36.0); MEAN PLATELET VOLUME 9.1 fL (7.4-11.4); MONOCYTES # (AUTO) 0.7 10^3/uL (0.0-1.0); MONOCYTES % (AUTO) 9.9 %; NEUTROPHILS # (AUTO) 4.7 10^3/uL (1.5-6.6); NEUTROPHILS % (AUTO) 67.8 %; PLT - PLATELET COUNT 372 10^3/uL (130-450); RED BLOOD COUNT 5.46 10^6/uL (4.70-6.10); WHITE BLOOD COUNT 6.9 x10^3/uL (4.8-10.8)
[2021-12-31 12:51] LABS: ESTIMATED AVERAGE GLUCOSE 123 mg/dL (70-100); HEMOGLOBIN A1c% 5.9 % (4.27-6.07)
[2021-12-31 13:02] LABS: % IRON SATURATION 11 % (20-50); ALBUMIN 4.4 g/dL (3.2-5.5); ALBUMIN/GLOBULIN RATIO 1.6 (1.0-2.2); ALKALINE PHOSPHATASE 57 IU/L (42-121); ALT ALANINE AMINOTRANSFERASE 37 IU/L (10-60); AST ASPARTATE AMINOTRANSFERASE 29 IU/L (10-42); BILIRUBIN,TOTAL 1.1 mg/dL (0.2-1.0); BUN - BLOOD UREA NITROGEN 18 mg/dL (6-20); CALCIUM 9.1 mg/dL (8.5-10.3); CARBON DIOXIDE - CO2 26 mmol/L (21-32); CHLORIDE 102 mmol/L (101-111); CHOL/HDL RATIO 2.5 (<5.0); CHOLESTEROL 168 mg/dL; CREATININE 0.9 mg/dL (0.6-1.2); GFR - MDRD 93 (>89); GLUCOSE 94 mg/dL (70-100); HDL CHOLESTEROL 68 mg/dL; IRON 53 ug/dL (45-182); LDL CHOLESTEROL,CALCULATED 90 mg/dL; LDL/HDL RATIO 1.3 (<3.6); POTASSIUM 4.7 mmol/L (3.5-5.0); SODIUM 136 mmol/L (135-145); TOTAL IRON BINDING CAPACITY 489 ug/dL (250-450); TOTAL PROTEIN 7.1 g/dL (6.7-8.2); TRANSFERRIN 349 mg/dL (180-329); TRIGLYCERIDES 51 mg/dL; VLDL CHOLESTEROL 10 mg/dL
[2021-12-31 13:16] LABS: FERRITIN 5.5 ng/mL (23.9-336.2)
== END 2021-12-31 07:40 | disposition home or self-care (01) ==
LOC: LAB.N 07:39
PROVIDERS: ATTEND Family Medicine
DX: D64.9 Anemia, unspecified (principal); I10 Essential (primary) hypertension; R73.01 Impaired fasting glucose
CPT/HCPCS: 36415; 80053; 80061; 82607; 82728; 83036; 83540; 83721; 84466; 85025

== ENCOUNTER 2022-08-31 07:28 | Outpatient (CLI) | payer BC ==
[2022-08-31 12:38] LABS: BASOPHILS % (AUTO) 0.5 %; EOSINOPHILS # (AUTO) 0.2 10^3/uL (0.0-0.7); HCT - HEMATOCRIT 46.8 % (42.0-52.0); HGB - HEMOGLOBIN 14.9 g/dL (14.0-18.0); LYMPHOCYTES # (AUTO) 1.4 10^3/uL (1.5-3.5); LYMPHOCYTES % (AUTO) 18.4 %; MEAN CORPUSCULAR HGB CONC 31.8 g/dL (32.0-36.0); MEAN CORPUSCULAR VOLUME 87.8 fL (80.0-94.0); MEAN PLATELET VOLUME 9.2 fL (7.4-11.4); MONOCYTES # (AUTO) 0.7 10^3/uL (0.0-1.0); MONOCYTES % (AUTO) 9.5 %; NEUTROPHILS # (AUTO) 5.1 10^3/uL (1.5-6.6); NEUTROPHILS % (AUTO) 68.3 %; PLT - PLATELET COUNT 318 10^3/uL (130-450); RED BLOOD COUNT 5.33 10^6/uL (4.70-6.10); RED CELL DISTRIBUTION WIDTH 14.2 % (12.0-15.0); WHITE BLOOD COUNT 7.4 x10^3/uL (4.8-10.8)
[2022-08-31 13:01] LABS: ESTIMATED AVERAGE GLUCOSE 126 mg/dL (70-100)
[2022-08-31 13:05] LABS: THYROID STIMULATING HORMONE 1.56 uIU/mL (0.34-5.60)
[2022-08-31 13:11] LABS: FERRITIN 8.3 ng/mL (23.9-336.2)
[2022-08-31 13:13] LABS: % IRON SATURATION 11 % (20-50); ALBUMIN 4.4 g/dL (3.2-5.5); ALBUMIN/GLOBULIN RATIO 1.8 (1.0-2.2); ALKALINE PHOSPHATASE 55 IU/L (42-121); ALT ALANINE AMINOTRANSFERASE 25 IU/L (10-60); AST ASPARTATE AMINOTRANSFERASE 22 IU/L (10-42); BILIRUBIN,TOTAL 0.6 mg/dL (0.2-1.0); BUN - BLOOD UREA NITROGEN 13 mg/dL (6-20); CHOL/HDL RATIO 2.3 (<5.0); CHOLESTEROL 158 mg/dL; GFR - MDRD 82 (>89); HDL CHOLESTEROL 68 mg/dL; IRON 51 ug/dL (45-182); TOTAL IRON BINDING CAPACITY 466 ug/dL (250-450); TOTAL PROTEIN 6.8 g/dL (6.7-8.2); TRANSFERRIN 333 mg/dL (180-329); TRIGLYCERIDES 37 mg/dL
[2022-08-31 13:25] LABS: CALCIUM 9.4 mg/dL (8.5-10.3); CARBON DIOXIDE - CO2 27 mmol/L (21-32); CHLORIDE 104 mmol/L (101-111); GLUCOSE 105 mg/dL (70-100); POTASSIUM 4.5 mmol/L (3.5-5.0); SODIUM 138 mmol/L (135-145)
== END 2022-08-31 07:29 | disposition home or self-care (01) ==
LOC: LAB.N 07:28
PROVIDERS: ATTEND Nurse Practitioner Family
DX: I10 Essential (primary) hypertension (principal); D64.9 Anemia, unspecified; E66.9 Obesity, unspecified
CPT/HCPCS: 36415; 80053; 80061; 82728; 83036; 83540; 83721; 84443; 84466; 85025

== ENCOUNTER 2023-11-15 07:43 | Outpatient (CLI) | payer BC ==
[2023-11-15 12:02] LABS: BASOPHILS # (AUTO) 0.1 10^3/uL (0.0-0.1); BASOPHILS % (AUTO) 0.7 %; EOSINOPHILS # (AUTO) 0.3 10^3/uL (0.0-0.7); EOSINOPHILS % (AUTO) 4.4 %; HCT - HEMATOCRIT 46.4 % (42.0-52.0); HGB - HEMOGLOBIN 14.9 g/dL (14.0-18.0); LYMPHOCYTES # (AUTO) 1.5 10^3/uL (1.5-3.5); LYMPHOCYTES % (AUTO) 21.7 %; MEAN CORPUSCULAR HEMOGLOBIN 27.9 pg (27.0-31.0); MEAN CORPUSCULAR HGB CONC 32.1 g/dL (32.0-36.0); MEAN CORPUSCULAR VOLUME 86.7 fL (80.0-94.0); MONOCYTES # (AUTO) 0.8 10^3/uL (0.0-1.0); MONOCYTES % (AUTO) 11.1 %; NEUTROPHILS # (AUTO) 4.4 10^3/uL (1.5-6.6); NEUTROPHILS % (AUTO) 61.8 %; PLT - PLATELET COUNT 314 10^3/uL (130-450); RED BLOOD COUNT 5.35 10^6/uL (4.70-6.10); RED CELL DISTRIBUTION WIDTH 18.1 % (12.0-15.0); WHITE BLOOD COUNT 7.1 x10^3/uL (4.8-10.8)
[2023-11-15 12:57] LABS: THYROID STIMULATING HORMONE 1.53 uIU/mL (0.34-5.60)
[2023-11-15 13:01] LABS: FERRITIN 57.5 ng/mL (23.9-336.2)
[2023-11-15 13:20] LABS: % IRON SATURATION 24 % (20-50); ALBUMIN 4.3 g/dL (3.2-5.5); ALBUMIN/GLOBULIN RATIO 1.9 (1.0-2.2); ALKALINE PHOSPHATASE 58 IU/L (42-121); ALT ALANINE AMINOTRANSFERASE 42 IU/L (10-60); AST ASPARTATE AMINOTRANSFERASE 19 IU/L (10-42); BILIRUBIN,TOTAL 0.5 mg/dL (0.2-1.0); BUN - BLOOD UREA NITROGEN 11 mg/dL (6-20); CALCIUM 9.3 mg/dL (8.5-10.3); CARBON DIOXIDE - CO2 31 mmol/L (21-32); CHLORIDE 103 mmol/L (101-111); CHOL/HDL RATIO 3.1 (<5.0); CHOLESTEROL 177 mg/dL; CREATININE 0.9 mg/dL (0.6-1.3); GFR - MDRD 93 (>89); GLUCOSE 98 mg/dL (74-104); HDL CHOLESTEROL 58 mg/dL; IRON 83 ug/dL (50-212); LDL CHOLESTEROL,CALCULATED 105 mg/dL; LDL/HDL RATIO 1.8 (<3.6); POTASSIUM 4.5 mmol/L (3.5-4.5); SODIUM 139 mmol/L (135-145); TOTAL IRON BINDING CAPACITY 344 ug/dL (250-450); TOTAL PROTEIN 6.6 g/dL (6.4-8.9); TRANSFERRIN 246 mg/dL (203-362); TRIGLYCERIDES 72 mg/dL (48-352); VLDL CHOLESTEROL 14 mg/dL
[2023-11-15 13:36] LABS: ESTIMATED AVERAGE GLUCOSE 120 mg/dL (70-100); HEMOGLOBIN A1c% 5.8 % (4.27-6.07)
== END 2023-11-15 07:44 | disposition home or self-care (01) ==
LOC: LAB.N 07:43
PROVIDERS: ATTEND Nurse Practitioner Family
DX: Z00.00 Encounter for general adult medical examination without abnormal findings (principal); I10 Essential (primary) hypertension; R79.89 Other specified abnormal findings of blood chemistry; R73.01 Impaired fasting glucose; Z83.3 Family history of diabetes mellitus
CPT/HCPCS: 36415; 80053; 80061; 82728; 83036; 83540; 83721; 84443; 84466; 85025